=== PATIENT | male | born 1970 | race Caucasian/White ===

== ENCOUNTER 2018-12-21 13:32 | Emergency (ER) | payer BC, SELFPAY ==
[2018-12-21 13:37] VITALS: BP 129/85; PULSE 73; RESP 15; TEMP 36.7; O2SAT 95
--- NOTE | 2018-12-21 13:46 | ED.GENADUL_ITS ---
Discharge Plan Disposition Patient Disposition: HOME Condition: Stable Discharge Details Chief Complaint: Orthopedic Clinical Impression: Contusion of right leg Primary Care Provider: Alejandra,Local ED Provider: Ritu Cedillo Home Meds and New Rx's Prescriptions: Continued sennosides [senna] 8.6 mg Tablet 17.2 mg PO HS RF: 0 carvedilol 6.25 mg Tablet 6.25 mg PO DAILY RF: 0 atorvastatin 20 mg Tablet 20 mg PO QPM RF: 0 aspirin, buffered 325 mg Tablet 325 mg PO DAILY RF: 0 levothyroxine 25 mcg Tablet 25 mcg PO .MON AND THURS RF: 0 docusate sodium [Colace] 100 mg Capsule 100 mg PO QHS RF: 0 omega-3 acid ethyl esters [Lovaza] 1 gram Capsule 2 cap PO BID RF: 0 niacin 1,000 mg Tablet Extended Release 1,000 mg PO QHS RF: 0 Discharge Instructions Instructions: Contusion in Adults (ED) Additional Instructions: Rest, ice, elevate right leg as much as possible. Alternate Tylenol and Motrin as needed and directed for pain. Wear the Brian wrap to help with pain and to reduce swelling. Follow-up with your primary care doctor in 1 week for reevaluation as needed. Return immediately to the emergency department any worsening or new concerning symptoms. Discharge Data Discharge Physician: Ritu Cedillo Medical Decision Making 48-year-old male presents with right proximal leg hematoma after she slipped and fell and hit his right leg on a snow machine prior to arrival. Vitals within normal limits. There is an 6 x 6 cm hematoma noted to right proximal anterior medial leg. No knee ligamentous instability. Normal right ankle and foot exam. No deformity. No open wounds. Neurovascular intact. Patient offered dose of Motrin here but declines. Will send for right tibia and fibula x-ray. 1440 --x-ray negative. Patient given Brian wrap to help with compression and pain. He is instructed to rest, ice, elevate, alternate Tylenol Motrin. He is instructed follow-up primary care doctor for reevaluation and return at any time if worse. Medical Records Medical records reviewed: Yes I reviewed the patient's medical records. Imaging Data Radiologic Study: Radiologist's impression: XR Right Tibia and Fibula, 2 Views EXAM DATE/TIME: 12/21/2018 1:52 PM FINDINGS: Bones/joints: No acute fracture. No dislocation. Soft tissues: Normal. IMPRESSION: No acute findings. HPI General Mode of arrival: ambulatory . Date/Time Provider Initiated Documentation: 12/21/18 13:41 . Limitations to Documentation: no limitations . Information obtained by: patient . HPI Narrative: Patient is a 48-year-old male presents with right proximal leg pain after slipped and fell and hit his right leg on a snow machine prior to arrival. He has not taken anything for pain. He denies any foot, ankle, knee or hip pain. Related Data Home Medications Medication Instructions Recorded Confirmed aspirin, buffered 325 mg PO DAILY 12/21/18 12/21/18 atorvastatin 20 mg PO QPM 12/21/18 12/21/18 carvedilol 6.25 mg PO DAILY 12/21/18 12/21/18 docusate sodium [Colace] 100 mg PO QHS 12/21/18 12/21/18 levothyroxine 25 mcg PO .MON AND THURS 12/21/18 12/21/18 niacin 1,000 mg PO QHS 12/21/18 12/21/18 omega-3 acid ethyl esters [Lovaza] 2 cap PO BID 12/21/18 12/21/18 sennosides [senna] 17.2 mg PO HS 12/21/18 12/21/18 Allergies Allergy/AdvReac Type Severity Reaction Status Date / Time amoxicillin [From Augmentin] Allergy Intermediate Hives Unverified 12/21/18 13:46 azithromycin Allergy Intermediate Hives Unverified 12/21/18 13:47 ciprofloxacin Allergy Intermediate Hives Unverified 12/21/18 13:46 clavulanic acid Allergy Intermediate Hives Unverified 12/21/18 13:46 [From Augmentin] fluconazole [From Diflucan] Allergy Intermediate Hives Unverified 12/21/18 13:46 metformin Allergy Intermediate Hives Unverified 12/21/18 13:46 General Stated Complaint: Orthopedic LAURENT: 4 Review of Systems Review of Systems All systems reviewed & are unremarkable except as noted in HPI and below PFSH Medical History HTN (hypertension) (Chronic) Hypothyroidism (Chronic) Surgical History History of hernia repair (Chronic) Social History Smoking/Tobacco Use Status: Never Alcohol Intake: never Substance use type: does not use Do you feel safe at home: Yes Do you feel safe in your relationship?: Yes Exam Const General: cooperative, healthy appearing and no acute distress HENMT Head: normal to inspection Mouth: oral mucosae normal Eyes General: appearance normal, both eyes and all related structures Neck Neck: normal visual inspection Resp Effort & Inspection: normal respiratory effort and able to speak in complete sentences Cardio Rate: regular rate Skin General skin exam: no rashes or lesions noted Neuro General: alert, awake and oriented x3 Motor: muscle tone normal throughout Extrem Right lower extremity: lower leg Upper/lower leg/hip images: 1. An approximate 6 x 6 cm area of tender, edematous, ecchymosis consistent with hematoma on left proximal medial leg. No open wounds noted. Remainder of compartments feel soft. No calf tenderness. No bony deformity. Other: No pain in right knee with range of motion. Negative anterior posterior drawer test. No pain or instability with valgus or varus stress. Negative Casey's test. No tenderness to palpation, edema, ecchymosis of right ankle or right foot. Right DP/PT pulses intact. Psych Appearance: grossly normal Affect: normal affect Course Vital Signs Temperature 98.1 F 12/21/18 13:37 Pulse 73 12/21/18 13:37 Respiratory Rate 15 12/21/18 13:37 Blood Pressure 129/85 12/21/18 13:37 Pulse Oximetry 95 12/21/18 13:37 Temperature 98.1 F 12/21/18 13:37 Temperature Source Temporal Artery Scan 12/21/18 13:37 Pulse 73 12/21/18 13:37 Respiratory Rate 15 12/21/18 13:37 Respiratory Effort Non-Labored 12/21/18 13:43 Blood Pressure 129/85 12/21/18 13:37 Blood Pressure Position Sitting 12/21/18 13:37 Pulse Oximetry 95 12/21/18 13:37 Oxygen Delivery Method Room Air 12/21/18 13:37 Oxygen Flow Rate 0 12/21/18 13:37 Pain Level 7 12/21/18 13:37
--- NOTE | 2018-12-21 13:51 | DI.RAD_ITS ---
SYMPTOM/DIAGNOSIS: S/P HIT, ON SNOWMACHINE, PAIN RIGHT TIB-FIB: There is no evidence of fracture or dislocation. There is an ex ostosis of the distal fibula at the tibiofibular joint. There are also mild degenerative changes of the tibiotalar joint medially. IMPRESSION: No acute abnormality.
--- NOTE | 2018-12-21 14:34 | DI.VRAD_ITS ---
EXAM: XR Right Tibia and Fibula, 2 Views EXAM DATE/TIME: 12/21/2018 1:52 PM CLINICAL HISTORY: 48 years old, male; Pain; Lower leg; Right; Patient HX: Blunt trauma to superior portion of aldridge. Rule out FX. TECHNIQUE: Imaging protocol: XR Right tibia and fibula 2 views COMPARISON: No relevant prior studies available. FINDINGS: Bones/joints: No acute fracture. No dislocation. Soft tissues: Normal. IMPRESSION: No acute findings. Dictated and Authenticated by: Marla Kessler MD. Ordering:CARLA Chaney MD
== END 2018-12-21 14:55 | disposition home or self-care (01) ==
PROVIDERS: Emergency Provider Physician Assistant
DX: S80.11XA Contusion of right lower leg, initial encounter (principal); W00.0XXA Fall on same level due to ice and snow, initial encounter; I10 Essential (primary) hypertension
CPT/HCPCS: 99283; 73590; 99282

== ENCOUNTER 2021-11-12 18:25 | Emergency (ER) | payer BC, SELFPAY ==
[2021-11-12] VITALS (26 sets, daily range): BP systolic 122–184; BP diastolic 66–96; PULSE 77–93; RESP 16–22; TEMP 36.5; O2SAT 89–98
--- NOTE | 2021-11-12 18:15 | RT.EKG_ITS ---
APPROVED REPORT Exam: Resting ECG Reason for Exam: palpatations Patient Location: E HR:81 bpm ECG Measurements Heart Rate 81 AXIS AL 176 P 46 QRSd 94 QRS 8 QT 355 T 16 QTc 414 Conclusion Sinus rhythm...normal P axis, V-rate 60- 99. Sinus. Normal axis. No STEMI. I have reviewed and interpreted ECG and agree with software generated interpretation.
--- NOTE | 2021-11-12 18:30 | DI.RAD_ITS ---
Exam(s) XR CHEST 2V PA LATERAL EXAM: XR CHEST 2V PA LATERAL CLINICAL HISTORY: Chest Pain TECHNIQUE: 2D digital imaging was performed of the chest. Two images were obtained. PA and lateral views were obtained. COMPARISON: No exams were available for comparison FINDINGS: MEDIASTINUM: Normal. HEART: Normal. PULMONARY VASCULATURE: Normal. LUNGS: Clear. PLEURAL SPACE: No pleural effusion or pneumothorax. BONE:Within normal limits for the patient's age. Old left healed clavicular fracture. OTHER FINDINGS:Normal. IMPRESSION: No acute pulmonary findings. DATA REPOSITORY: RADIATION DOSE DELIVERED:
--- NOTE | 2021-11-12 18:30 | DI.CT_ITS ---
Exam(s) CT HEAD WO EXAM: CT HEAD WO CLINICAL HISTORY: BARNETT, Dizziness, AMS. TECHNIQUE: Imaging Protocol: Axial computed tomography images with coronal and sagittal reformatted images were created and reviewed COMPARISON: No exams were available for comparison FINDINGS: Ventricles and Extra axial spaces: Normal in size and morphology for the patient's age. Hemorrhage: None. Cerebral parenchyma: Normal. No acute territorial infarct. Midline shift: None. Brainstem/Cerebellum: Normal. Calvarium: Normal. Visualized Paranasal sinuses/Mastoids: There is mild mucosal thickening in the paranasal sinuses. Soft Tissues: Unremarkable. IMPRESSION: No acute intracranial process. RADIATION DOSE DELIVERED: 880.03mGy.cm Total DLP DATA REPOSITORY: All CT scans at this facility are submitted to the National Radiology Data Registry (NRDR) Dose Index Registry (DIR) with the [employer] (ACR). RADIATION OPTIMIZATION: All CT scans at this facility use at least one of these dose optimization te chniques: automated exposure control; mA and/or kV adjustment per patient size (includes targeted exa ms where dose is matched to clinical indication); or iterative reconstruction.
--- NOTE | 2021-11-12 18:31 | W.ED.GENAD ---
Discharge Plan Disposition Patient Disposition: HOME Condition: Stable Discharge Details Clinical Impression: Chest pain, Headache Primary Care Provider: Alejandra,Local ED Provider: Madeline Amezcua Home Meds and New Rx's Prescriptions: Continued carvedilol 6.25 mg Tablet 6.25 mg PO DAILY 0RF atorvastatin 20 mg Tablet 20 mg PO QPM 0RF aspirin,buffd-calcium carb-mag 325 mg Tablet 325 mg PO DAILY 0RF levothyroxine 25 mcg Tablet 25 mcg PO .MON AND THURS 0RF docusate sodium [Colace] 100 mg Capsule 100 mg PO QHS 0RF omega-3 acid ethyl esters [Lovaza] 1 gram Capsule 2 cap PO BID 0RF niacin 1,000 mg Tablet Extended Release 1,000 mg PO QHS 0RF ascorbic acid (vitamin C) 300 mg Tablet,Chewable 300 mg PO DAILY 0RF echinacea 200 mg Capsule PO 0RF Discharge Instructions Instructions: Chest Pain (ED), General Headache (ED) Additional Instructions: At this time there is no evidence for blood clot, cardiac work-up is within normal limits. Head CT and chest x-ray are also within normal limits. Follow up with primary care provider in 3-5 days. Return to ED sooner if any worsening or concerns. Increase oral fluids. Please take Tylenol or Ibuprofen with food every 4-6 hours as needed for pain and swelling. If continued concerns please call Dr. Glenny Doss neurologist for a follow-up appointment in the next week. Stand Alone Forms: Work Release Referrals: Glenny Doss MD [ [facility] STAFF PHYSICIAN] - 1 week Medical Decision Making 51-year-old male presents to the ER with chief complaint of dizziness, chest pain, headache, dizziness and palpitations which began 2 hours ago after shoveling snow. He does have a history of migraine, hypertension, high cholesterol, hypothyroidism. EMS reports that noted a couple of episodes of transient altered mental status. Patient is alert and oriented speaking in full sentences upon initial presentation. He does report an all over headache which is not like his normal migraines. 1913: RN reports that patient is requesting to have the door open and patient urinated all over the floor despite being given a urinal for a urine sample. CBC largely within normal limits, D-dimer 600 which is slightly elevated, will order chest CT. CMP within normal limit initial troponin less than 50. TSH also within normal limit. Patient complaining of nausea over in radiology is requesting for nausea medication prior to CT of his head. CT Head WO: FINDINGS: Brain: The ventricles and the cortical sulci are within normal limits. There is no evidence of acute hemorrhage, mass or shift. There is no evidence of an acute cortical or major vascular territory infarct. No abnormal extra-axial collections are identified. Cerebral ventricles: No significant ventricular enlargement/hydrocephalus. Paranasal sinuses: There is mild chávez sinus mucoperiosteal thickening. There is no significant opacification, fluid level nor intra sinus hemorrhage. Mastoid air cells: No significant mastoid opacification Bones/joints: There is no acute bony abnormality Soft tissues: Subcutaneous soft tissues are unremarkable IMPRESSION: No acute findings. Imaging protocol: XR of the chest. Views: 2 views. COMPARISON: No relevant prior studies available. FINDINGS: Lungs: Unremarkable. No consolidation. Pleural spaces: Unremarkable. No pleural effusion. No pneumothorax. Heart/Mediastinum: Unremarkable. No cardiomegaly. Bones/joints: Mild degenerative changes in the spine. No acute bony abnormality IMPRESSION: No acute findings 3. 2130: Patient reevaluation patient states he is feeling much better. IV normal saline is infusing without difficulty. Discussed repeat troponin. I did speak with his who is concerned for his mental status she reports that he is just not acting himself. Second troponin within normal limits. Informed by staff combat information center officer that patient is attempting to rip out his IV. Will discharge patient home with strict return instructions. Patient discharged in hemodynamically stable condition, ambulatory without assistance in department. This text was generated using [employer] dictation system, please disregard any oddities of phrase or misspellings. HPI General Mode of arrival: EMS. Date/Time Provider Initiated Documentation: 11/12/21 18:31. Limitations to Documentation: no limitations. Information obtained by: patient, EMS and RN notes reviewed. HPI Narrative: 51-year-old male presents to the ER with chief complaint of dizziness, chest pain, headache, dizziness and palpitations which began 2 hours ago after shoveling snow. He does have a history of migraine, hypertension, high cholesterol, hypothyroidism. EMS reports that noted a couple of episodes of transient altered mental status. Patient is alert and oriented speaking in full sentences upon initial presentation. He does report an all over headache which is not like his normal migraines. Related Data Home Medications Medication Instructions Recorded Confirmed aspirin,buffered (calcium 325 mg PO DAILY 12/21/18 11/12/21 carbonate-magnesium) 325 mg tablet atorvastatin 20 mg tablet 20 mg PO QPM 12/21/18 11/12/21 carvedilol 6.25 mg tablet 6.25 mg PO DAILY 12/21/18 11/12/21 docusate sodium 100 mg capsule 100 mg PO QHS 12/21/18 11/12/21 (Colace) levothyroxine 25 mcg tablet 25 mcg PO .MON AND THURS 12/21/18 11/12/21 niacin 1,000 mg tablet,extended 1,000 mg PO QHS 12/21/18 11/12/21 release omega-3 acid ethyl esters 1 gram 2 cap PO BID 12/21/18 11/12/21 capsule (Lovaza) ascorbic acid (vitamin C) 300 mg 300 mg PO DAILY 11/12/21 11/12/21 chewable tablet echinacea 200 mg capsule mg PO 11/12/21 Allergies Allergy/AdvReac Type Severity Reaction Status Date / Time amoxicillin [From Augmentin] Allergy Intermediate Hives Unverified 11/12/21 18:42 azithromycin Allergy Intermediate Hives Unverified 11/12/21 18:42 ciprofloxacin Allergy Intermediate Hives Unverified 11/12/21 18:42 clavulanic acid Allergy Intermediate Hives Unverified 11/12/21 18:42 [From Augmentin] fluconazole [From Diflucan] Allergy Intermediate Hives Unverified 11/12/21 18:42 metformin Allergy Intermediate Hives Unverified 11/12/21 18:42 General LAURENT: 4 Review of Systems Narrative: Constitutional: Negative for weight loss, alert and oriented, well groomed, normal body habitus, appears comfortable. HEENT: Denies trauma, blurry vision, nasal discharge, sore throat, trouble swallowing. Chest: Denies irregular rhythm, positive chest pain, palpitations, history of hypertension. Respiratory: Denies Shortness of breath, cough, hemoptysis. GI: Denies abdominal pain, nausea, vomiting, diarrhea, constipation. : Denies dysuria, hematuria, flank pain, rectal bleeding. Neuro: Denies blurry vision, weakness, syncope, or facial numbness. Positive dizziness and headache. Hematologic: Denies easy bruising, intolerance to heat or cold, hair loss. PFSH All Active Problems (Updated 11/12/21 @ 22:20 by Madeline Amezcua) Chest pain (Acute) Headache (Acute) Medical History HTN (hypertension) Hypothyroidism Surgical History History of hernia repair Social History Smoking/Tobacco Use Status: Never Smoking risk assessment performed?: Yes Alcohol Intake: never Substance use type: does not use Do you feel safe at home: Yes Do you feel safe in your relationship?: Yes Exam Narrative Exam Narrative: Constitutional: Alert and oriented x3. Appears stated age. Normal body habitus. Head: Normocephalic, no trauma. Eyes: Pupils PERRL, Red reflex noted, EOM's intact. Eyelids symmetrical without lesions, discharge, or swelling. ENT: Bilateral TM's WNL, External ear normal to inspection, no mastoid TTP, swelling, or erythema, Nasal turbinates WNL, no nasal discharge. Normal dentition, Posterior pharynx WNL, no exudate. Chest: RRR, Normal S1, S2, distal pulses intact. Resp: Lungs clear to auscultation bilaterally, no wheezes, rales, or rhonchi. Abdomen: Soft, non-distended, Normoactive bowel sounds all 4 quads. Musculoskeletal: Normal gait, 5/5 strength to all four extremities. Skin: No suspicious rashes or lesions. Capillary refill less than 2 sec. Neurologic: Cranial nerves II-XII intact. Alert and oriented x 3. Motor: No deficits noted. Sensory: Intact bilaterally all 4 extremities. Reflexes: DTR's intact bilaterally.. Hematologic/Lymphatic: No ecchymosis, no lymphadenopathy.
[2021-11-12 19:01] LABS: Abs Immature Grans 0.02 10^3/uL (0.0-0.06); Absolute Basophil Count 0.06 10^3/uL (0.0-0.2); Absolute Eosinophil Count 0.44 10^3/uL (0.0-0.7); Absolute Lymphocyte Count 1.93 10^3/uL (1.2-3.4); Absolute Monocyte Count 0.69 10^3/uL (0.1-0.8); Absolute Neutrophil Count 7.02 10^3/uL (1.2-6.7); Basophils % 0.6; Eosinophils % 4.3; HCT 44.9 % (40.0-50.0); HGB 14.7 g/dL (13.5-17.5); Immature Grans % 0.2; MCH 27.5 pg (27.0-33.0); MCHC 32.7 % (32.0-36.0); MCV 83.9 fL (80-95); MPV 9.2 fL (8.0-11.0); Monocytes % 6.8; Neutrophils % 69.1; Nucleated RBC 0 %; Platelet Count 257 10^3/uL (130-400); RBC 5.35 10^6/uL (4.36-5.78); RDW 13.3 % (11.8-14.1); RDW-SD 40.7 fL; WBC 10.16 10^3/uL (4.4-10.8)
[2021-11-12] MEDS: Normal Saline 1,000 ML 125 ML IV (19:04)
[2021-11-12 19:23] LABS: ALT 29 U/L (16-63); AST 15 U/L (15-37); Albumin 3.9 g/dL (3.4-5.0); Alkaline Phosphatase 69 U/L (46-116); BUN 16 mg/dL (7-18); Bilirubin, Total 0.3 mg/dL (0.2-1.0); CREATININE 1.1 mg/dL (0.70-1.30); Calcium 9.1 mg/dL (8.5-10.1); Chloride 103 mmol/L (98-107); Glucose 101 mg/dL (74-106); Magnesium 2.1 mg/dL (1.8-2.4); Potassium 3.6 mmol/L (3.5-5.1); Sodium 139 mmol/L (136-145); TSH (W/Ref FT4) 2.55 uIU/mL (0.36-3.74); Total Protein 8.1 g/dL (6.4-8.2); Troponin I < 50 ng/L (<or=60)
[2021-11-12] MEDS: Ondansetron 4 MG/2 ML VIAL IVP (19:30)
--- NOTE | 2021-11-12 19:30 | DI.CT_ITS ---
Exam(s) CT CHEST PE CTA EXAM: CT CHEST PE CTA CLINICAL HISTORY: R/O PE, chest pain. TECHNIQUE: Imaging Protocol: Axial CT angiography was performed with multi-slice acquisition and mu lti-planar and/or 3D reconstructions. CONTRAST MATERIAL: Intravenous: Omnipaque 350 Contrast volume:100 mL COMPARISON: CR,XR XR CHEST 2V PA LATERAL from 11/12/2021 FINDINGS: The examination is limited due to patient motion artifact. Tracheobronchial tree: Patent where visualized. Pulmonary parenchyma: No consolidation or dominant measurable mass. No architectural distortion. Pulmonary Arteries: No evidence of filling defect to suggest pulmonary emboli. Evaluation of peripher al pulmonary arteries is limited due to patient motion artifact. Mediastinum and Nany: No dominant adenopathy or fluid collection. The esophagus is unremarkable. Visualized thyroid gland: Unremarkable. Pleura: No effusion or pneumothorax. Heart: The heart is not dilated. Coronary artery calcifications are present. No pericardial effusion . Aorta: Thoracic aorta non-dilated. No evidence of dissection. Upper abdomen: Unremarkable. Soft tissues: Unremarkable. Bones: Within normal limits for the patient's age.There is an old healed left clavicular fracture. T here are old healed left rib fractures. IMPRESSION: 1. Examination limited by patient motion artifact. 2. No evidence of pulmonary embolism, thoracic aortic dissection or aneurysm. RADIATION DOSE DELIVERED: 578.4mGy.cm Total DLP DATA REPOSITORY: All CT scans at this facility are submitted to the National Radiology Data Registry (NRDR) Dose Index Registry (DIR) with the [employer] (ACR). RADIATION OPTIMIZATION: All CT scans at this facility use at least one of these dose optimization te chniques: automated exposure control; mA and/or kV adjustment per patient size (includes targeted exa ms where dose is matched to clinical indication); or iterative reconstruction.
[2021-11-12 19:32] LABS: D-Dimer 600 ng/mlFEU (<500)
--- NOTE | 2021-11-12 19:44 | DI.VRAD_ITS ---
PROCEDURE INFORMATION: Exam: XR Chest Exam date and time: 11/12/2021 6:31 PM Age: 51 years old Clinical indication: Other: Chest pain TECHNIQUE: Imaging protocol: XR of the chest. Views: 2 views. COMPARISON: No relevant prior studies available. FINDINGS: Lungs: Unremarkable. No consolidation. Pleural spaces: Unremarkable. No pleural effusion. No pneumothorax. Heart/Mediastinum: Unremarkable. No cardiomegaly. Bones/joints: Mild degenerative changes in the spine. No acute bony abnormality IMPRESSION: No acute findings Dictated and Authenticated by: Harleen Owusu MD. Ordering:KENJI Correa MD
--- NOTE | 2021-11-12 19:47 | DI.VRAD_ITS ---
PROCEDURE INFORMATION: Exam: CT Head Without Contrast Exam date and time: 11/12/2021 6:31 PM Age: 51 years old Clinical indication: Pain; Altered mental status/memory loss and dizziness; Headache; Patient HX: BARNETT, dizziness, AMS TECHNIQUE: Imaging protocol: Computed tomography of the head without contrast. COMPARISON: No relevant prior studies available. FINDINGS: Brain: The ventricles and the cortical sulci are within normal limits. There is no evidence of acute hemorrhage, mass or shift. There is no evidence of an acute cortical or major vascular territory infarct. No abnormal extra-axial collections are identified. Cerebral ventricles: No significant ventricular enlargement/hydrocephalus. Paranasal sinuses: There is mild chávez sinus mucoperiosteal thickening. There is no significant opacification, fluid level nor intra sinus hemorrhage. Mastoid air cells: No significant mastoid opacification Bones/joints: There is no acute bony abnormality Soft tissues: Subcutaneous soft tissues are unremarkable IMPRESSION: No acute findings. Dictated and Authenticated by: Harleen Owusu MD. Ordering:KENJI Correa MD
[2021-11-12] MEDS: Omnipaque 350 MG/ML 100 ML BTL IJ (20:16)
[2021-11-12 20:38] LABS: *AMPHETAMINES SCREEN URINE Negative (Negative); *BARBITURATES SCREEN URINE Negative (Negative); *BENZODIAZEPINES SCREEN URINE Negative (Negative); Cannabinoids THC Negative (Negative); Cocaine Screen,Urine Negative (Negative); METHADONE URINE SCREEN Negative (Negative); OPIATES URINE SCREEN Negative (Negative); Tricyclic Antidepressants Negative (Negative)
--- NOTE | 2021-11-12 21:00 | DI.VRAD_ITS ---
PROCEDURE INFORMATION: Exam: CTA Chest With Contrast Exam date and time: 11/12/2021 7:37 PM Age: 51 years old Clinical indication: Other: Unspecified pain; Patient HX: Chest pain, R/O pe TECHNIQUE: Imaging protocol: Computed tomographic angiography of the chest with contrast. 3D rendering (Not supervised by radiologist): MIP and/or 3D reconstructed images were created by the technologist. Contrast material: 350; Contrast volume: 100 ml; Contrast route: INTRAVENOUS (IV); COMPARISON: CR XR CHEST 2V PA LATERAL 11/12/2021 7:17 PM FINDINGS: Pulmonary arteries: Evaluation of the pulmonary arteries for small or peripheral emboli is limited due to patient motion. However no large or central pulmonary embolus is visualized. Aorta: Aorta is nonaneurysmal. No acute aortic abnormality is identified. Lungs: Evaluation of the lungs is degraded by patient respiratory motion. No lobar consolidation. No suspicious pulmonary parenchymal mass or nodule identified. No endobronchial lesion identified. Pleural spaces: Large pleural effusion, or pneumothorax is not seen Heart: The heart size within normal limits. No significant pericardial effusion Lymph nodes: No significant adenopathy identified Intraperitoneal space: No acute findings in the upper abdomen probable fatty liver. The Bones/joints: Findings consistent with thoracic spondylosis, degenerative disc disease. No acute bony abnormality identified. Soft tissues: No significant subcutaneous abnormality is identified. Other findings: Examination is somewhat degraded by patient respiratory motion. IMPRESSION: Examination is degraded by patient respiratory motion which somewhat limits evaluation for small or peripheral emboli. No large or central embolus is identified. Dictated and Authenticated by: Harleen Owusu MD. Ordering:KENJI Correa MD
[2021-11-12 21:28] LABS: Bilirubin Negative (Negative); Blood Negative (Negative); Clarity Clear (Clear); Glucose Negative (Negative); Ketones Trace mg/dL (Negative); Leukocyte Esterase Negative (Negative); Nitrite Negative (Negative); Specific Gravity 1.025 (1.005-1.025); Urobilinogen 0.2 EU/dL (Up TO 0.2); pH 5.5 (5-8)
--- NOTE | 2021-11-12 21:30 | RT.EKG_ITS ---
APPROVED REPORT Exam: Resting ECG Reason for Exam: chest pain Patient Location: E HR:92 bpm ECG Measurements Heart Rate 92 AXIS ME 168 P 50 QRSd 94 QRS 9 QT 344 T 22 QTc 425 Conclusion Sinus rhythm...normal P axis, V-rate 60- 99
[2021-11-12 22:02] LABS: Troponin I < 50 ng/L (<or=60)
== END 2021-11-12 22:27 | disposition home or self-care (01) ==
PROVIDERS: Emergency Provider Registered Nurse Emergency
DX: R07.9 Chest pain, unspecified (principal); R41.82 Altered mental status, unspecified; R51.9 Headache, unspecified; R42 Dizziness and giddiness; R00.2 Palpitations; R11.0 Nausea
CPT/HCPCS: 36415; 71275; 80053; 80307; 93005; 96361; 96374; 99285; 70450; 71046; 81003; 83735; 84443; 84484; 85025; 85379; 93010; 99284; J2405; J3490